=== PATIENT | female | born 1965 | race African-American/Black ===

== ENCOUNTER 2017-01-31 10:32 | Emergency (ER) | payer OTHER ==
--- NOTE | ~2017-01-31 | CR63 ---
[facility] A Service of [facility] RADIOLOGY TEXT RESULTS PATIENT: SUKI CORNEJO LOCATION: SED : 67 UNIT #: [id number] AGE: [address]: Boris Chilel MD SEX: F ORDER DR: [id number] [address] [address] [id number] E MR#: [id number] Acc #: [id number] NAME: SUKI CORNEJO : 1965 SEX: F STUDY DATE/TIME: 01/31/2017 10:21 UNIT: SED ROOM: STUDY DESCRIPTION: CR Chest 2 View Attending Physician: Boris Chilel M.D. Ordering Physician: Boris Chilel M.D. Primary Care Physician: Charan Christy M.D. MEDICAL IMAGING REPORT This report is preliminary unless electronic signature is present. EXAM Chest, 2 views dated 01/31/2017. COMPARISON Chest, 2 views dated . HISTORY Cough, throat complaint of 3 days. Sore throat. FINDINGS 2 views of the chest were obtained. Lungs are well-aerated. Heart, mediastinum, and bones are unremarkable. Correlate with surgery in the region of the left lower chest and upper abdomen. Stable. Heart and mediastinum are within normal limits. There is mild anterior wedge compression deformity of one of the mid-thoracic vertebral bodies, probably T7 or T8. Stable in the last 7 years. IMPRESSION 1. No acute cardiopulmonary disease. 2. Chronic anterior wedge compression deformity of one of the mid-thoracic vertebral bodies, probably T7 or T8. Dictated by... Neel Maciel M.D. THIS IS AN ELECTRONICALLY VERIFIED REPORT Neel Maciel M.D. at 02/01/2017 12:43 PM CPR/tmw TD: 01/31/2017 15:25 [facility] A Service of [facility] RADIOLOGY TEXT RESULTS PATIENT: SUKI CORNEJO LOCATION: SED : 67 UNIT #: [id number] AGE: [address]: Boris Chilel MD SEX: F ORDER DR: JOB #: [id number] MEDICAL IMAGING REPORT
[2017-01-31 10:29] LABS: INFLUENZA A NEG (NEG); INFLUENZA B NEG (NEG)
[~2017-01-31 10:32] MED LIST: AMBIEN PO; BACTRIM DS TABL1 TAB PO; BENTYL PO; BONIVA PO; COLACE PO; CRESTOR PO; DIFLUCAN PO; DOXYCYCLINE PO; FLAGYL PO; FLOVENT INHALER; HCTZ PO; LEVAQUIN PO; LISINOPRIL PO; PENICILLIN; PERCOCET5/325 PO; POTASSIUM CL PO; PROTONIX PO; ROBITUSSIN AC PO; SIMVASTATIN PO; TOPAMAX PO; ULTRAM PO; VICODIN PO; VITAMIN D3 PO; XANAX PO; [UNRECOGNIZED DRUG - OTHER]
[2017-06-14] MEDS ORDERED: ALBUTEROL MININEB NEB (09:03)
[2017-06-14] MEDS ORDERED: BENTYL20 MG PO (09:03)
[2017-06-14] MEDS ORDERED: ALBUTEROL17 GM INH (09:04)
[2017-06-14] MEDS ORDERED: FLOVENT7.9 GM INH (09:04)
[2017-06-14] MEDS ORDERED: MONTELUKAST SOD10 MG PO (09:05)
[2017-06-14] MEDS ORDERED: ZESTORETIC 20-1 EAC2 PO (09:05)
[2017-06-14] MEDS ORDERED: ROSUVASTATIN CA20 MG PO (09:06)
[2017-06-14] MEDS ORDERED: KCL PO (09:06)
[2017-06-14] MEDS ORDERED: TOPAMAX50 MG PO (09:07)
[2017-07-10] MEDS ORDERED: BONIVA150 MG PO (09:02)
[2017-07-10] MEDS ORDERED: VITAMIN D350000 UNIT PO (09:07)
== END 2017-01-31 11:20 | disposition home or self-care (01) ==
LOC: SED 10:32
PROVIDERS: Emergency Medicine
DX: H66.91 Otitis media, unspecified, right ear (principal); J01.00 Acute maxillary sinusitis, unspecified
CPT/HCPCS: 71020; 87651; 87804; 94640; 99283

== ENCOUNTER → 2017-02-12 | Outpatient (CLI) | payer OTHER ==
[~2017-02-12] MED LIST changes: +ALBUTEROL MININEB NEB; +ALBUTEROL17 GM INH; +BENTYL20 MG PO; +BONIVA150 MG PO; +FLOVENT7.9 GM INH; +KCL PO; +MONTELUKAST SOD10 MG PO; +ROSUVASTATIN CA20 MG PO; +TOPAMAX50 MG PO; +VITAMIN D350000 UNIT PO; +ZESTORETIC 20-1 EAC2 PO
== END | disposition home or self-care (01) ==
LOC: CBAR 10:11
DX: Z01.818 Encounter for other preprocedural examination (principal); E66.01 Morbid (severe) obesity due to excess calories
CPT/HCPCS: G0463

== ENCOUNTER → 2017-03-26 | Outpatient (CLI) | payer OTHER | END | disposition home or self-care (01) | LOC: CBAR 12:15 | DX: Z01.818 Encounter for other preprocedural examination (principal); E66.01 Morbid (severe) obesity due to excess calories | CPT/HCPCS: G0463 ==

== ENCOUNTER → 2017-04-30 | Outpatient (CLI) | payer OTHER | END | disposition home or self-care (01) | LOC: CBAR 11:51 | DX: Z01.818 Encounter for other preprocedural examination (principal); E66.01 Morbid (severe) obesity due to excess calories | CPT/HCPCS: G0463 ==

== ENCOUNTER 2017-06-12 11:01 | Emergency (ER) | payer BC, OTHER ==
--- NOTE | ~2017-06-12 | CR21 ---
[facility]. [facility] A Service of [facility] & [facility] RADIOLOGY TEXT RESULTS PATIENT: SUKI CORNEJO LOCATION: SED : 67 UNIT #: [id number] AGE: [address]: Lesly Jimenez SEX: F ORDER DR: [id number] [address] [address] [id number] E MR#: [id number] Acc #: [id number] NAME: SUKI CORNEJO : 1965 SEX: F STUDY DATE/TIME: 06/12/2017 11:35 UNIT: SED ROOM: STUDY DESCRIPTION: CR Ankle Min 3 Views Rt Attending Physician: Lesly Jimenez Pa-C Ordering Physician: Lesly Jimenez Pa-C Primary Care Physician: Wyatt Felipe M.D. MEDICAL IMAGING REPORT This report is preliminary unless electronic signature is present. EXAM Right ankle 3 views 06/12/2017 1135 hours. HISTORY 51-year-old woman who twisted ankle on concrete last night. Pain and swelling dorsally. COMPARISON None. FINDINGS AP, lateral and oblique views demonstrate no acute fracture or dislocation. There is a very tiny ossicle adjacent to the medial malleolus felt chronic. IMPRESSION 1. No acute fracture or dislocation. 2. Tiny ossicle adjacent to the medial malleolus is felt to be benign and chronic. 1. Dictated by... Elly Lazaro M.D. THIS IS AN ELECTRONICALLY VERIFIED REPORT Elly Lazaro M.D. at 06/12/2017 2:32 PM MY/fátima TD: 06/12/2017 13:31 JOB #: [id number] MEDICAL IMAGING REPORT Page 1 of 1
--- NOTE | ~2017-06-12 | CR127 ---
[facility]. [facility] A Service of [facility] & [facility] RADIOLOGY TEXT RESULTS PATIENT: SUKI CORNEJO LOCATION: SED : 67 UNIT #: [id number] AGE: [address]: Lesly Jimenez SEX: F ORDER DR: [id number] [place] [id number] E MR#: [id number] Acc #: [id number] NAME: SUKI CORNEJO : 1965 SEX: F STUDY DATE/TIME: 06/12/2017 11:35 UNIT: SED ROOM: STUDY DESCRIPTION: CR Foot Complete Min 3 View Rt Attending Physician: Lesly Jimenez Pa-C Ordering Physician: Lesly Jimenez Pa-C Primary Care Physician: Wyatt Felipe M.D. MEDICAL IMAGING REPORT This report is preliminary unless electronic signature is present. EXAM Right foot 3 views 06/12/2017 11:35 hours HISTORY 51-year-old woman who twisted foot and ankle on concrete last night. Dorsal foot pain. COMPARISON None. FINDINGS AP, lateral and oblique views demonstrate normal bone density. There is no fracture or dislocation. IMPRESSION Negative right foot. Dictated by... Elly Lazaro M.D. THIS IS AN ELECTRONICALLY VERIFIED REPORT Elly Lazaro M.D. at 06/12/2017 2:32 PM MY/shakira TD: 06/12/2017 13:41 JOB #: [id number] MEDICAL IMAGING REPORT Page 1 of 1
[~2017-06-12 11:01] MED LIST changes: -ALBUTEROL MININEB NEB; -ALBUTEROL17 GM INH; -BENTYL20 MG PO; -BONIVA150 MG PO; -FLOVENT7.9 GM INH; -KCL PO; -MONTELUKAST SOD10 MG PO; -ROSUVASTATIN CA20 MG PO; -TOPAMAX50 MG PO; -VITAMIN D350000 UNIT PO; -ZESTORETIC 20-1 EAC2 PO
[2017-06-14] MEDS ORDERED: BENTYL20 MG PO (09:03)
[2017-06-14] MEDS ORDERED: ALBUTEROL MININEB NEB (09:03)
[2017-06-14] MEDS ORDERED: FLOVENT7.9 GM INH (09:04)
[2017-06-14] MEDS ORDERED: ALBUTEROL17 GM INH (09:04)
[2017-06-14] MEDS ORDERED: MONTELUKAST SOD10 MG PO (09:05)
[2017-06-14] MEDS ORDERED: ZESTORETIC 20-1 EAC2 PO (09:05)
[2017-06-14] MEDS ORDERED: ROSUVASTATIN CA20 MG PO (09:06)
[2017-06-14] MEDS ORDERED: KCL PO (09:06)
[2017-06-14] MEDS ORDERED: TOPAMAX50 MG PO (09:07)
[2017-07-10] MEDS ORDERED: BONIVA150 MG PO (09:02)
[2017-07-10] MEDS ORDERED: VITAMIN D350000 UNIT PO (09:07)
== END 2017-06-12 12:06 | disposition home or self-care (01) ==
LOC: SED 11:01
DX: S93.401A Sprain of unspecified ligament of right ankle, initial encounter (principal); I10 Essential (primary) hypertension; Z88.2 Allergy status to sulfonamides; Z88.8 Allergy status to other drugs, medicaments and biological substances; X50.9XXA Other and unspecified overexertion or strenuous movements or postures, initial encounter; Y92.009 Unspecified place in unspecified non-institutional (private) residence as the place of occurrence of the external cause
CPT/HCPCS: 29540; 73610; 73630; 99283

== ENCOUNTER → 2017-06-14 | Outpatient (CLI) | payer OTHER ==
[~2017-06-14] MED LIST changes: +ALBUTEROL MININEB NEB; +ALBUTEROL17 GM INH; +BENTYL20 MG PO; +BONIVA150 MG PO; +FLOVENT7.9 GM INH; +KCL PO; +MONTELUKAST SOD10 MG PO; +ROSUVASTATIN CA20 MG PO; +TOPAMAX50 MG PO; +VITAMIN D350000 UNIT PO; +ZESTORETIC 20-1 EAC2 PO
--- NOTE | ~2017-06-14 | CR63 ---
[facility] A Service of [facility] RADIOLOGY TEXT RESULTS PATIENT: SUKI CORNEJO LOCATION: [facility] : 67 UNIT #: [id number] AGE: [address]: Cristian Go MD SEX: F ORDER DR: [id number] [facility] [address] [place], [place] [address] [id number] O MR#: [id number] Acc #: [id number] NAME: SUKI CORNEJO : 1965 SEX: F STUDY DATE/TIME: 06/14/2017 7:49 UNIT: [facility] ROOM: STUDY DESCRIPTION: CR Chest 2 View Attending Physician: Cristian Go M.D. Referring Physician: Cristian Go M.D. Ordering Physician: Cristian Go M.D. Primary Care Physician: Wyatt Felipe M.D. MEDICAL IMAGING REPORT This report is preliminary unless electronic signature is present EXAM Chest x-ray HISTORY Morbid obesity. Preoperative evaluation for Lap-Band surgery. Shortness of breath with activity. COMPARISON 01/31/2017 TECHNIQUE 2 views the chest were obtained. FINDINGS The aorta is tortuous and ectatic. There is mild cardiomegaly. Both lungs are fully expanded and clear. Vascular markings are normal. Postoperative changes are seen at the left diaphragm consistent with diaphragmatic hernia repair. IMPRESSION Cardiomegaly with a tortuous ectatic aorta. No active disease. No change from previous exam. Dictated by... Terry Li M.D. THIS IS AN ELECTRONICALLY VERIFIED REPORT Terry Li M.D. at 06/14/2017 12:47 PM LIZZYF/galo TD: 06/14/2017 11:49 JOB #: [id number] [facility] A Service of [facility] RADIOLOGY TEXT RESULTS PATIENT: SUKI CORNEJO LOCATION: [facility] : 67 UNIT #: [id number] AGE: [address]: Cristian Go MD SEX: F ORDER DR: MEDICAL IMAGING REPORT Page 1 of 1 COPY
--- NOTE | ~2017-06-14 | EKG ---
PATIENT: SUKI CORNEJO UNIT #: [id number] Ventricular Rate: 55 BPM Atrial Rate: 55 BPM P-R Interval: 150 ms QRS Duration: 82 ms Q-T Interval: 426 ms QTC Calculation(Bezet): 407 ms P [place]: 27 degrees Calculated R [place]: 14 degrees Calculated T [place]: 36 degrees Diagnosis Line: Sinus bradycardia Diagnosis Line: Otherwise normal ECG Diagnosis Line: No previous ECGs available Diagnosis Line: Confirmed by HAYDER CONLEY MD ([id number]) on Diagnosis Line: 06/14/2017 2:46:40 PM INTERPRETING MD: JARVIS HERMAN
--- NOTE | ~2017-06-14 | CR97 ---
[facility] A Service of [facility] & [facility] RADIOLOGY TEXT RESULTS PATIENT: SUKI CORNEJO LOCATION: [facility] : 67 UNIT #: [id number] AGE: [address]: Cristian Go MD SEX: F ORDER DR: [id number] [facility] [address] [place], [place] [address] [id number] O MR#: [id number] Acc #: [id number] NAME: SUKI CORNEJO : 1965 SEX: F STUDY DATE/TIME: 06/14/2017 8:16 UNIT: [facility] ROOM: STUDY DESCRIPTION: CR Esophagram Attending Physician: Cristian Go M.D. Referring Physician: Cristian Go M.D. Ordering Physician: Cristian Go M.D. Primary Care Physician: Wyatt Felipe M.D. MEDICAL IMAGING REPORT This report is preliminary unless electronic signature is present EXAM Single contrast barium esophagram This is a preoperative examination prior to laparoscopic gastric banding. The patient shortness of breath with activity. FINDINGS Thoracic esophagus is of normal caliber and no evidence of stricture or mass lesion. Postsurgical changes are seen at the junction which I think are probably related to prior hiatal hernia repair. Similar findings were seen on the exam from November 04, 2009. This does not appear to be resulting in any obstruction. No reflux was seen. Total fluoroscopy time was 0.7 minutes. A total of 17 fluoroscopic images were noted. Esophageal motility appeared normal. IMPRESSION Postoperative changes noted at the GE junction likely reflecting prior fundoplication. Correlation with operative history is recommended. Remainder of the esophagus appears unremarkable. Dictated by... Radha Ceron M.D. THIS IS AN ELECTRONICALLY VERIFIED REPORT Radha Ceron M.D. at 06/17/2017 5:06 PM AFF/darlene TD: 06/17/2017 13:25 JOB #: [id number] MEDICAL IMAGING REPORT [facility] A Service of [facility] & [facility] RADIOLOGY TEXT RESULTS PATIENT: SUKI CORNEJO LOCATION: [facility] : 67 UNIT #: [id number] AGE: [address]: Cristian Go MD SEX: F ORDER DR: Page 1 of 1 COPY
[2017-06-14 09:48] LABS: HEMATOCRIT 41.2 % (35.0-45.0); HEMOGLOBIN 13.3 gm/dL (12.0-16.0); MEAN CELL VOLUME 81.5 FL (83-96); MEAN CORPUSCULAR HEMOGLOBIN 26.2 PG (28-34); MEAN CORPUSCULAR HGB CONC 32.2 g/dL (30-36); MEAN PLATELET VOLUME 9.6 FL (6.5-11.5); RED BLOOD COUNT 5.06 X10e (3.90-5.30); RED CELL DISTRIBUTION WIDTH 15.8 % (11.0-15.5); WHITE BLOOD COUNT 4.5 X10e3 (4.0-10.5)
[2017-06-14 10:37] LABS: ALBUMIN SERUM 4.3 g/dL (3.5-5.0); BILIRUBIN,TOTAL 0.4 mg/dL (0.2-2.0); BUN/CREATININE RATIO 21.25; CALCIUM SERUM 10.6 mg/dL (8.4-10.2); CREATININE SERUM 0.8 mg/dL (0.6-1.4); GLOM FILT RATE Estimated 99.7 mL/min (>60); POTASSIUM 4.5 mmol/L (3.5-5.1); PROTEIN TOTAL SERUM 7.5 g/dL (6.0-8.3)
== END | disposition home or self-care (01) ==
LOC: CRAD 07:27 → CAMB 09:30
PROVIDERS: Surgery
DX: Z01.818 Encounter for other preprocedural examination (principal); I51.7 Cardiomegaly; I77.810 Thoracic aortic ectasia; R00.1 Bradycardia, unspecified
CPT/HCPCS: 36415; 71020; 74220; 80053; 80061; 84443; 85027; 93005

== ENCOUNTER → 2017-06-26 | Day surgery (SDC) | payer OTHER | END | disposition home or self-care (01) | LOC: CSUR 06:23 | DX: E66.01 Morbid (severe) obesity due to excess calories (principal); Z53.8 Procedure and treatment not carried out for other reasons | CPT/HCPCS: J1650; J1885 ==

== ENCOUNTER 2017-07-10 17:16 | Emergency (ER) | payer OTHER ==
--- NOTE | ~2017-07-10 | CT2 ---
[facility] A Service of [facility] & [facility] RADIOLOGY TEXT RESULTS PATIENT: SUKI CORNEJO LOCATION: [facility] : 67 UNIT #: [id number] AGE: [address]: Robert Jackson MD SEX: F ORDER DR: [id number] [facility] [address] [place], [place] [address] [id number] E MR#: [id number] Acc #: [id number] NAME: SUKI CORNEJO : 1965 SEX: F STUDY DATE/TIME: 07/10/2017 21:12 UNIT: [facility] ROOM: STUDY DESCRIPTION: CT Abd and Pelv W Cont Attending Physician: Robert Jackson M.D. Ordering Physician: Robert Jackson M.D. Primary Care Physician: Wyatt Felipe M.D. MEDICAL IMAGING REPORT This report is preliminary unless electronic signature is present EXAM CT scan of the abdomen and pelvis with contrast, 07/10/2017 HISTORY Left side abdominal pain beginning today. History of lap band surgery 8 hours ago today. TECHNIQUE Spiral CT was performed through the abdomen and pelvis following intravenous contrast administration only, as per clinician request. This CT exam was performed with one or more of the following radiation dose reduction techniques: Automatic exposure control, adjustment of mA and/or kV according to patient size, and iterative reconstruction. FINDINGS ABDOMEN: There is fatty infiltration of the liver. The spleen, pancreas, adrenal glands and kidneys are normal. No gastric band is identified. Clinical correlation is recommended. There is a heqbc-cf-kbreqscg amount of free air within the peritoneal cavity, which is an expected finding for abdominal surgery earlier today. There are postsurgical changes at the gastroesophageal junction suggesting prior Lexie fundoplication. PELVIS FINDINGS: There is colonic diverticulosis without evidence of diverticulitis. There are postsurgical changes involving the cecum probably reflecting appendectomy. Postsurgical changes are also seen involving the rectosigmoid junction. Ill-defined hematoma is seen involving the anterior abdominal wall to the left of the midline at the level of the umbilicus, measuring approximately 7 cm x 4.3 cm, presumably postsurgical in nature and there is gas in the subcutaneous fat of the left lower quadrant. No adenopathy is seen. Very minimal free fluid is seen in the pelvis. Atelectatic changes are seen at the lung bases. Evidence of prior augmentation mammoplasty. [facility]. [facility] A Service of [facility] RADIOLOGY TEXT RESULTS PATIENT: SUKI CORNEJO LOCATION: [facility] : 67 UNIT #: [id number] AGE: [address]: Roebrt Jackson MD SEX: F ORDER DR: IMPRESSION 1. Exam is somewhat limited by the lack of oral contrast. 2. Patient is reportedly status post laparoscopic gastric band surgery earlier today but no gastric band is identified. Clinical correlation is recommended. There is a lldsp-yb-oueigeiy amount of free air within the peritoneal cavity, an expected finding if the patient had surgery earlier today. 3. Postsurgical changes presumably of prior Lexie fundoplication. 4. Fatty infiltration of the liver. 5. Surgical absence of the gallbladder. 6. Diverticulosis, no evidence of diverticulitis. Retained barium is seen within several colonic diverticula. There are postsurgical changes involving the cecum and the rectosigmoid junction. 7. Ill-defined subcutaneous hematoma located within the anterior abdominal wall to the left of the midline, measuring 7.1 cm x 4.3 cm, which is presumably postsurgical in nature. Presumed postoperative gas is also seen in the subcutaneous fat of the left lower quadrant anterior abdominal wall. 8. Minimal free fluid in the pelvis. Dictated by... Torres Sandoval M.D. THIS IS AN ELECTRONICALLY VERIFIED REPORT Torres Sandoval M.D. at 07/11/2017 2:14 PM BE/riccardo TD: 07/11/2017 03:54 JOB #: [id number] MEDICAL IMAGING REPORT Page 1 of 1 COPY
[2017-07-10 19:53] LABS: BASOPHIL% 0.2 % (0-2.5); EOSINOPHIL% 0.2 % (0.0-7.0); HEMATOCRIT 40.8 % (35.0-45.0); HEMOGLOBIN 13.2 gm/dL (12.0-16.0); MEAN CELL VOLUME 80.6 FL (83-96); MEAN CORPUSCULAR HEMOGLOBIN 26.1 PG (28-34); MEAN CORPUSCULAR HGB CONC 32.4 g/dL (30-36); MEAN PLATELET VOLUME 9.7 FL (6.5-11.5); MONOCYTE# 0.4 X10e3 (0-1.0); MONOCYTE% 4.1 % (3.0-12.0); NEUTROPHIL# 6.2 X10e3 (1.5-7.1); NEUTROPHIL% 72.5 % (40-75); PLATELET COUNT 249 X10e3 (140-420); RED BLOOD COUNT 5.06 X10e (3.90-5.30); RED CELL DISTRIBUTION WIDTH 15.7 % (11.0-15.5); WHITE BLOOD COUNT 8.5 X10e3 (4.0-10.5)
[2017-07-10 19:57] LABS: DIFF IND NO
[2017-07-10 20:15] LABS: ALBUMIN SERUM 4.5 g/dL (3.5-5.0); BILIRUBIN, DIRECT 0.1 mg/dL (0.0-0.2); BILIRUBIN,INDIRECT 0.4 mg/dL (0.0-0.9); BILIRUBIN,TOTAL 0.5 mg/dL (0.2-2.0); CALCIUM SERUM 9.5 mg/dL (8.4-10.2); CREATININE SERUM 0.8 mg/dL (0.6-1.4); GLOM FILT RATE Estimated 99.7 mL/min (>60); POTASSIUM 4.2 mmol/L (3.5-5.1); PROTEIN TOTAL SERUM 8.2 g/dL (6.0-8.3)
== END 2017-07-10 22:45 | disposition home or self-care (01) ==
LOC: CED 17:16
PROVIDERS: Emergency Medicine
DX: G89.18 Other acute postprocedural pain (principal); R10.12 Left upper quadrant pain; M54.9 Dorsalgia, unspecified; I10 Essential (primary) hypertension; Z90.49 Acquired absence of other specified parts of digestive tract; Z90.710 Acquired absence of both cervix and uterus; Z79.899 Other long term (current) drug therapy; Z88.2 Allergy status to sulfonamides; Z88.8 Allergy status to other drugs, medicaments and biological substances; Z91.048 Other nonmedicinal substance allergy status
CPT/HCPCS: 36415; 74177; 80048; 80076; 82150; 83690; 85025; 96372; 96374; 96376; 99284; J1170; J2270; Q9967

== ENCOUNTER → 2017-07-10 | Day surgery (SDC) | payer OTHER ==
--- NOTE | ~2017-07-10 | OR ---
Unit #: [id number] #: [id number] Patient: SUKI CORNEJO [id number] [address] [address] [id number] O MR#: [id number] NAME: SUKI CORNEJO ROOM: Date of Procedure: 07/10/2017 Admission Date: 07/10/2017 Surgeon: Cristian Go M.D. : 1965 Attending Physician: Cristian Go M.D. Primary Care Physician: Wyatt Felipe M.D. OPERATIVE REPORT PREOPERATIVE DIAGNOSIS Chronic morbid obesity. POSTOPERATIVE DIAGNOSIS 1. Chronic morbid obesity. 2. Multiple and severe adhesions, upper abdominal cavity. PROCEDURES PERFORMED 1. Diagnostic laparoscopy. 2. Extensive adhesiolysis. ASSISTANT Mario Bustillo M.D. ANESTHESIA General anesthesia. ESTIMATED BLOOD LOSS 50 mL. IV FLUIDS 800 crystalloid. INDICATIONS FOR PROCEDURE The patient is a 51-year-old lady, who is interested in laparoscopic band. She has gone through laparoscopic band program, has seen the seminar and gone through the live program in preparation. She presents for attempted lap band placement after multiple abdominal operations. DESCRIPTION OF PROCEDURE The patient was taken to the operating theater and placed in supine position. General anesthesia was induced. The abdomen was prepped and draped. A 2 cm incision was then made left of the midline. A Visiport was then placed intraabdominal. Upon entering the abdominal cavity, there were multiple adhesions throughout the abdominal cavity likely secondary to her multiple operations. We were able to gain a space above the transverse colon and created a window to the epigastric region. We placed right upper quadrant 5 mm, left lower quadrant 5 mm, left upper quadrant 10 mm, and Mel liver retractor. Upon retracting the liver, there were multiple adhesions to the stomach consistent with her Lexie fundoplication. We attempted to take down these adhesions along the border of the liver. We got into significant adhesions as well as Unit #: [id number] #: [id number] Patient: SUKI CORNEJO adhesions of the stomach. They were intimately adhered to the previously placed mesh used to complete her Lexie fundoplication. We got into some hemorrhage from the hepatogastric connection at her previous Lexie wrap. This was controlled with clips as well as a wfzkhs-ks-oeqrr Ethibond suture. With consultation with my partner, Dr. Bustillo, it was determined that proceeding had greater risk than benefit in Ms. Perry's situation and that further attempt to perform adhesiolysis in the presence of the mesh to place the band would be life-threatening. Thus, we aborted the procedure. Hemostasis was adequate. I removed the ports under direct vision and closed with 4-0 Vicryl. The patient tolerated the procedure well and sent to recovery room in stable condition. Dictated by... Radha Grover/rhys TD: 07/10/2017 19:08 JOB #: [id number] OPERATIVE REPORT Page 1 of 1 X Cristian Go MD X PROCEDURE OPERATIVE NOTE
== END | disposition home or self-care (01) ==
LOC: CSUR 09:14
DX: E66.01 Morbid (severe) obesity due to excess calories (principal); K66.0 Peritoneal adhesions (postprocedural) (postinfection); E78.5 Hyperlipidemia, unspecified; M81.0 Age-related osteoporosis without current pathological fracture; Z68.34 Body mass index [BMI] 34.0-34.9, adult; Z88.1 Allergy status to other antibiotic agents; Z88.8 Allergy status to other drugs, medicaments and biological substances; Z91.040 Latex allergy status; Z91.048 Other nonmedicinal substance allergy status; Z79.899 Other long term (current) drug therapy; Z90.49 Acquired absence of other specified parts of digestive tract; Z90.710 Acquired absence of both cervix and uterus
CPT/HCPCS: J0690; J1650; J1885; J2250; J3010